=== PATIENT | female | born 1960 | race Caucasian/White ===

== ENCOUNTER 2020-12-04 14:04 | Emergency (ER) | payer OTHER ==
[2020-12-04] MEDS ORDERED: Tetracaine HCl/PF 0.5% 4 ML Bottle EYERT ONE (15:31)
[2020-12-04] MEDS ORDERED: Fluorescein 1 MG Ophth Strip EYERT ONE (15:31)
--- NOTE | 2020-12-04 15:49 | EDM.PDOC ---
ED HPI GENERAL MEDICAL PROBLEM - General Chief Complaint: Eye Problems Stated Complaint: [id number] CONTACT STUCK IN EYE Time Seen by Provider: 12/04/20 15:30 Source of Information: Reports: Patient, RN, RN Notes Reviewed History Limitations: Reports: No Limitations - History of Present Illness INITIAL COMMENTS - FREE TEXT/NARRATIVE: Zulema is a 60 y/o female who presents to the ED via personal vehicle with complaints of injection of the right eye. The patient reports she recently started wearing contacts and has the sensation of a contact being stuck in her eye. She states she has been attempting to remove the contact for several hours and is now experiencing significant irritation and redness to the sclera. The patient denies vision loss or changes. She denies headache or photosensitivity. Right Eye Pain Score (Numeric/FACES): 5 - Related Data Allergies Allergy/AdvReac Type Severity Reaction Status Date / Time amoxicillin [From Augmentin] Allergy Airway Verified 12/04/20 14:40 Tightness clavulanic acid Allergy Airway Verified 12/04/20 14:40 [From Augmentin] Tightness Home Meds: Home Meds Losartan [Cozaar] 25 mg PO DAILY 12/04/20 [History] Meloxicam 15 mg PO DAILY 12/04/20 [History] Rosuvastatin [Crestor] 10 mg PO DAILY 12/04/20 [History] hydroCHLOROthiazide [Hydrochlorothiazide] 12.5 mg PO DAILY 12/04/20 [History] Past Medical History HEENT History: Reports: None Cardiovascular History: Reports: High Cholesterol, Hypertension Respiratory History: Reports: None Gastrointestinal History: Reports: Diverticulosis Genitourinary History: Reports: None [employer] History: Reports: None Musculoskeletal History: Reports: Arthritis, Connective Tissue Disease, Other (See Below) Other Musculoskeletal History: degen joint disease Neurological History: Reports: None Psychiatric History: Reports: Anxiety, Depression Endocrine/Metabolic History: Reports: None Hematologic History: Reports: None Immunologic History: Reports: None Oncologic (Cancer) History: Reports: None Dermatologic History: Reports: None - Infectious Disease History Infectious Disease History: Reports: Rubella - Past Surgical History Head Surgeries/Procedures: Reports: None Social & Family History - Family History Family Medical History: No Pertinent Family History - Tobacco Use Tobacco Use Status *Q: Never Tobacco User - Caffeine Use Caffeine Use: Reports: Coffee - Recreational Drug Use Recreational Drug Use: No ED ROS GENERAL - Review of Systems Review Of Systems: Comprehensive ROS is negative, except as noted in HPI. ED EXAM GENERAL W FULL EYE - Physical Exam Exam: See Below Exam Limited By: No Limitations General Appearance: Alert, Anxious Eye Exam: Right Eye: Conjunctival Injection, Bilateral Eye: EOMI, PERRL (3mm) Eyelids: Bilateral: Normal Appearance, Lid Everted for Exam Conjunctiva & Sclera: Right: Injected, Left: Normal Appearance Cornea Exam: Right: Corneal Abrasion (At 6 o'clock position), Examined with Fl ourescein Extraocular Movements: Bilateral: Intact Pupils: Normal Accommodation Pupillary Size: Bilateral: 3 mm Pupillary Reaction: Bilateral: Brisk Ears: Normal External Exam, Normal Canal, Hearing Grossly Normal, Normal TMs Throat/Mouth: Normal Inspection, Normal Oropharynx, Normal Voice, No Airway Compromise Head: Atraumatic, Normocephalic Neck: Normal Inspection, Supple, Non-Tender, Full Range of Motion Respiratory/Chest: No Respiratory Distress, Lungs Clear, Normal Breath Sounds, No Accessory Muscle Use, Chest Non-Tender Cardiovascular: Normal Peripheral Pulses, Regular Rate, Rhythm, No Gallop, No Murmur, No Rub GI/Abdominal: Normal Bowel Sounds, Soft, Non-Tender (Male) Exam: Deferred (Female) Exam: Deferred Rectal (Males) Exam: Deferred Rectal (Female) Exam: Deferred Back Exam: Normal Inspection, Full Range of Motion Extremities: Normal Inspection, Normal Range of Motion, Normal Capillary Refill Neurological: Alert, Oriented, CN II-XII Intact, Normal Cognition, Normal Gait, No Motor/Sensory Deficits Psychiatric: Anxious Skin Exam: Warm, Dry, Intact, Normal Color, No Rash. No: Cyanosis, Jaundice, Mottled, Pallor ED EYE w/ Add Procedure - Eye Procedure Alcaine Drops Administered: Yes Eye FB Removal: no Removal w/ Cotton Swab, no Removal w/ Needle, no Other Cyclogel 2 Drops Administered: Right Eye Antibiotic Oinment/Drps Admin: Right Eye Progress: No foreign body appreciated. Large corneal abrasion noted to 6'oclick position of right globe. Course - Vital Signs Last Recorded V/S: Last Vital Signs Temp 97.6 F 12/04/20 14:43 Pulse 70 12/04/20 14:43 Resp 18 12/04/20 14:43 BP 172/98 H 10/16/21 14:43 Pulse Ox 96 12/04/20 14:43 - Orders/Labs/Meds Meds: Medications Discontinued Medications Generic Name Dose Route Start Last Admin Trade Name Misty PRN Reason Stop Dose Admin Fluorescein Sodium 1 mg 12/04/20 15:31 12/04/20 15:48 Fluorescein 1 Mg Ophth Strip EYERT 12/04/20 15:32 1 mg ONETIME ONE Administration Gentamicin Sulfate 1 ml 12/04/20 21:00 Gentamicin 0.3% Ophth Soln 5 Ml Bottle EYERT TID KIMBERLY Gentamicin Sulfate Confirm 12/04/20 15:55 Gentamicin 0.3% Ophth Soln 5 Ml Bottle Administered 12/04/20 15:56 Dose 5 ml .ROUTE .STK-MED ONE Tetracaine HCl 1 ml 12/04/20 15:31 12/04/20 15:48 Tetracaine Hcl/Pf 0.5% 4 Ml Bottle EYERT 12/04/20 15:32 1 drop ASDIRECTED ONE Administration - Re-Assessments/Exams Free Text/Narrative Re-Assessment/Exam: 12/04/20 Findings of examination reviewed with patient. Will treat corneal abrasion with gentamicin ophthalmic drops. Patient instructed to follow up with primary teller coordinator in 2-3 days should symptoms persist despite medications. Red flag signs and symptoms which would warrant immediate reevaluation reviewed. Patient verbalized understanding and agreement with the plan of care. Departure - Departure Time of Disposition: 15:47 Disposition: Home, Self-Care 01 Condition: Good Clinical Impression: Corneal abrasion Qualifiers: Encounter type: initial encounter Laterality: right Qualified Code(s): S05.01XA - Injury of conjunctiva and corneal abrasion without foreign body, right eye, initial encounter - Discharge Information *PRESCRIPTION DRUG MONITORING PROGRAM REVIEWED*: Not Applicable *COPY OF PRESCRIPTION DRUG MONITORING REPORT IN PATIENT GUERITA: Not Applicable Instructions: Corneal Abrasion Referrals: Margaret Cantor NP [Primary Care Provider] - Forms: ED Department Discharge Additional Instructions: Rx: gentamycin ophthalmic drops 0.3% 1.) One drop to the right eye, three times a day for seven days. 2.) Follow up with your primary brand advisor in 2-3 days should symptoms persist or worsen despite medication. 3.) Avoid contact use until eye is fully healed. Sepsis Event Note (ED) - Evaluation Sepsis Screening Result: No Definite Risk
[2020-12-04] MEDS ORDERED: Gentamicin 0.3% Ophth Soln 5 ML Bottle ONE (15:55)
[2020-12-04] MEDS ORDERED: Gentamicin 0.3% Ophth Soln 5 ML Bottle EYERT SCH (21:00)
== END 2020-12-04 15:58 | disposition home or self-care (01) ==
LOC: DL.ED 14:04
DX: S05.01XA Injury of conjunctiva and corneal abrasion without foreign body, right eye, initial encounter (principal); E78.00 Pure hypercholesterolemia, unspecified; I10 Essential (primary) hypertension; Z88.0 Allergy status to penicillin; Z88.1 Allergy status to other antibiotic agents; Z79.899 Other long term (current) drug therapy; X58.XXXA Exposure to other specified factors, initial encounter
CPT/HCPCS: 99283; A9270-GY

== ENCOUNTER 2023-12-27 15:02 | Inpatient (IN) | payer MEDICARE, OTHER ==
[2023-12-27] MEDS: Iopamidol 612 MG/ML 100 ML Bottle IVPUSH ONE (16:13)
[2023-12-27 16:15] LABS: APPEARANCE,URINE CLEAR (CLEAR); BILIRUBIN,URINE NEGATIVE (NEGATIVE); COLOR,URINE YELLOW (YELLOW); GLUCOSE,URINE NEGATIVE (NEGATIVE); KETONES,URINE 40 (NEGATIVE); LEUKOCYTE ESTERASE,URINE TRACE (NEGATIVE); NITRITE,URINE NEGATIVE (NEGATIVE); OCCULT BLOOD,URINE TRACE-LYSED (NEGATIVE); PROTEIN,URINE 30 (NEGATIVE)
[2023-12-27 16:21] LABS: BASOPHILS PERCENT AUTO 0.1 % (0.0-1.0); EOSINOPHILS PERCENT AUTO 0.3 % (1.0-3.0); HEMATOCRIT 41.3 % (37.0-47.0); HEMOGLOBIN 13.6 g/dL (12.0-16.0); LYMPHOCYTES PERCENT AUTO 13.2 % (20.5-50.1); MEAN CORPUSCULAR HEMOGLOBIN 30.8 pg (27.0-34.0); MEAN CORPUSCULAR HGB CONC 32.9 g/dL (33.0-35.0); MEAN CORPUSCULAR VOLUME 93.7 fL (80-100); MONOCYTES PERCENT AUTO 4.6 % (2-8); NEUTROPHILS PERCENT AUTO 81.8 % (42.2-75.2); PLATELET COUNT,PLT 311 10^3/uL (150-450); RED BLOOD CELL COUNT 4.41 10^6/uL (4.2-5.4); WHITE BLOOD CELL COUNT,WBC 14.4 10^3/uL (5.0-10.0)
[2023-12-27 16:22] LABS: BACTERIA,URINE FEW /HPF (0-FEW/HPF); EPITHELIAL CELLS,URINE MODERATE /HPF (NOT SEEN); MUCUS,URINE MODERATE /LPF (NOT SEEN)
[2023-12-27 16:23] LABS: RBC,URINE 0-5 /HPF (0-5)
[2023-12-27 16:44] LABS: ALANINE AMINOTRANSFERASE,ALT 26 U/L (14-59); ALBUMIN 3.9 g/dL (3.4-5.0); ALKALINE PHOSPHATASE 93 U/L (46-116); ANION GAP 14.6 mEq/L (7-13); ASPARTATE AMNIOTRANSFERASE,AST 18 U/L (15-37); BILIRUBIN TOTAL 0.8 mg/dL (0.2-1.0); BLOOD UREA NITROGEN,BUN 10 mg/dL (7-18); BUN/CREATININE RATIO 10.8 (No establ ref range); CALCIUM 9.6 mg/dL (8.5-10.1); CARBON DIOXIDE,CO2 28 mmol/L (21-32); CHLORIDE,CL 99 mmol/L (98-107); CREATININE 0.93 mg/dL (0.55-1.02); GLUCOSE RANDOM 103 mg/dL (70-99); LIPASE 29 U/L (16-77); POTASSIUM,K 3.6 mmol/L (3.5-5.1); PROTEIN TOTAL,TP 7.7 g/dL (6.4-8.2); SODIUM,NA 138 mmol/L (136-145)
[2023-12-27 16:46] LABS: ESTIMATED GFR 69 mL/min (>=60); LACTIC ACID 2.3 mmol/L (0.4-2.0)
[2023-12-27] MEDS: Sodium Chloride 0.9% 1,000 ML IV ONE ×2 (16:48→16:59)
[2023-12-27] MEDS: Famotidine 20 MG/2 ML SDV IVPUSH ONE (16:48)
[2023-12-27] MEDS: diphenhydrAMINE 50 MG/ML SDV IVPUSH ONE (16:48)
[2023-12-27] MEDS: methylPREDNISolone Sodium Succinate 125 MG/2 ML SDV IVPUSH ONE (16:49)
[2023-12-27] MEDS: Ketorolac 30 MG/ML SDV IVPUSH ONE (18:13)
[2023-12-27] MEDS: Piperacillin/Tazobactam 4.5 GM in Sodium Chloride 0.9% 100 ML IV ONE (18:14)
[2023-12-27] MEDS ORDERED: Ondansetron 4 MG/2 ML SDV IVPUSH PRN (18:27)
[2023-12-27] MEDS ORDERED: Morphine 2 MG/ML SYRINGE IVPUSH PRN (18:27)
[2023-12-27] MEDS ORDERED: oxyCODONE 5 MG Tab PO PRN (18:27)
[2023-12-27] MEDS ORDERED: HYDROmorphone 0.5 MG/0.5 ML Syringe IVPUSH PRN (18:27)
[2023-12-27] MEDS: Propranolol 10 MG Tab PO SCH (20:35)
[2023-12-27] MEDS: Enoxaparin 40 MG/0.4 ML Syringe SUBCUT SCH (20:36)
[2023-12-27] MEDS: Acetaminophen/Butalbital/Caffeine 325-50-40 MG Tab PO PRN (20:46)
[2023-12-28] MEDS: Piperacillin/Tazobactam 4.5 GM in Sodium Chloride 0.9% 100 ML IV SCH (00:01)
[2023-12-28 06:30] LABS: HEMATOCRIT 35.8 % (37.0-47.0); HEMOGLOBIN 11.9 g/dL (12.0-16.0); MEAN CORPUSCULAR HEMOGLOBIN 31.4 pg (27.0-34.0); MEAN CORPUSCULAR HGB CONC 33.2 g/dL (33.0-35.0); MEAN CORPUSCULAR VOLUME 94.5 fL (80-100); RED BLOOD CELL COUNT 3.79 10^6/uL (4.2-5.4); WHITE BLOOD CELL COUNT,WBC 10.9 10^3/uL (5.0-10.0)
[2023-12-28 06:46] LABS: ANION GAP 13.8 mEq/L (7-13); CALCIUM 8.6 mg/dL (8.5-10.1); CREATININE 0.75 mg/dL (0.55-1.02); EST CRCL DRUG DOSING (CG) 84.1 mL/min; POTASSIUM,K 3.8 mmol/L (3.5-5.1)
[2023-12-28] MEDS: Furosemide 20 MG Tab PO SCH (09:11)
[2023-12-28] MEDS: Losartan 25 MG Tab PO SCH (09:12)
[2023-12-28] MEDS: diphenhydrAMINE 25 MG Tab PO ONE (23:10)
== END 2023-12-29 12:30 | disposition home or self-care (01) | DRG 872 ==
LOC: DL.ED 15:02 → DL.MS 17:20 → DL.ED 17:57
PROVIDERS: ADMIT Internal Medicine; ATTEND Internal Medicine
DX: A41.9 Sepsis, unspecified organism (principal); K57.32 Diverticulitis of large intestine without perforation or abscess without bleeding; I10 Essential (primary) hypertension; G89.29 Other chronic pain; M54.9 Dorsalgia, unspecified; E78.00 Pure hypercholesterolemia, unspecified; M19.90 Unspecified osteoarthritis, unspecified site; F41.9 Anxiety disorder, unspecified; X58.XXXA Exposure to other specified factors, initial encounter; F32.A Depression, unspecified; T78.40XA Allergy, unspecified, initial encounter; E88.810 Metabolic syndrome; E86.9 Volume depletion, unspecified; Z88.1 Allergy status to other antibiotic agents; Z79.899 Other long term (current) drug therapy
CPT/HCPCS: 36415; 74177; 80048; 80053; 81001; 82947; 83605; 83690; 83735; 84484; 85025; 85027; 87040; 87086; 93005; 93010; 96374; 96375; 99222; 99232; 99239; 99285; 99285-25; A9270-GY; J1200; J1650; J1885; J2543; J2919; J3490; J7030; Q9967